=== PATIENT | male | born 1975 ===

== ENCOUNTER → 2016-06-24 | Outpatient (CLI) | payer BC ==
[~2016-06-24] MED LIST: MULT-513 PO; ONDA4TAB46 PO
--- NOTE | 2016-06-24 10:25 | DIAGNOSTIC IMAGING REPORT ---
KUB CLINICAL HISTORY: N20.1 Ureteral stone COMPARISON STUDY: 01/14/2014 FINDINGS: There is no pathologic bowel dilatation. No urinary tract calculi are visualized on conventional radiographic imaging. IMPRESSION: Unremarkable supine abdomen. Electronically signed by: Nigel Dobson M.D. 06/24/2016 10:24 AM Dictated Date/Time: 06/24/2016 10:23 AM
== END | disposition home or self-care (01) ==
LOC: C.RAD 09:38
PROVIDERS: ATTEND Urology
DX: N20.1 Calculus of ureter (principal)

== ENCOUNTER → 2016-09-22 | Outpatient (CLI) | payer BC ==
--- NOTE | 2016-09-22 12:19 | DIAGNOSTIC IMAGING REPORT ---
ULTRASOUND LEFT LOWER EXTREMITY NONVASCULAR CLINICAL HISTORY: Left hebert lump. COMPARISON STUDY: No priors. FINDINGS: Real-time, grayscale, and color flow sonography of the soft tissues of the anterolateral left hebert is performed to indicate a site of interest. There is an approximately 10 mm hypoechoic soft tissue nodule identified at the site of interest. This appears contiguous with the underlying musculature, and likely represents fascial herniation of the tibialis anterior muscle. No fluid collection is seen. IMPRESSION: There is a 10 mm hypoechoic soft tissue nodule the site of interest, likely representing tibialis anterior muscle herniation. Consider orthopedic assessment. Electronically signed by: Ryan Ruffin M.D. 09/22/2016 12:17 PM Dictated Date/Time: 09/22/2016 12:10 PM
== END | disposition home or self-care (01) ==
LOC: C.ULTR 11:28
PROVIDERS: ATTEND Nurse Practitioner
DX: R22.32 Localized swelling, mass and lump, left upper limb (principal)

== ENCOUNTER 2016-10-04 10:10 | Emergency (ER) | payer OTHER, BC ==
[~2016-10-04] VITALS: Ht 188 cm; Wt 91.9 kg
[2016-10-04 10:15] VITALS: TEMP 36.6; Ht 188 cm; Wt 91.9 kg
--- NOTE | 2016-10-04 10:33 | EMERGENCY ROOM VISIT NOTE ---
History First contact with patient: 10:18 Chief Complaint: FALL Stated Complaint: HEAD INJURY,FALL History of Present Illness The patient is a 40 year old male who presents to the Emergency Room with complaints of fall. The patient was sitting outside work waiting for colleagues to arrival. He was sitting on a metal bike rack. He leaned backwards and the entire rack fell backwards. He struck the back of his head on the building behind him. He states that initially he was dazed. He states that he has had a mild headache and trouble focusing. He rates his discomfort a 3/10. He states he has had some burning in his neck. He denies any loss of consciousness, nausea or vomiting. He reports some pain and swelling in the left elbow. He denies any other injury. Review of Systems A 10 system review of systems was completed with positives and pertinent negatives listed in the HPI. Past Medical/Surgical History Medical Problems: (1) Hemorrhoidectomy (2) Rectal polyp removal Social History Smoking Status: Never Smoker Alcohol Use: occasionally Marital Status: single Occupation Status: employed Current/Historical Medications Scheduled Multivitamins/Minerals (Mvi With Minerals), 1 TAB PO DAILY Allergies Coded Allergies: No Known Allergies (Unverified , NONE, 10/04/16) Physical Exam Vital Signs Date Time Temp Pulse Resp B/P (MAP) Pulse Ox O2 Delivery O2 Flow Rate FiO2 10/04/16 14:07 54 16 116/84 99 10/04/16 12:11 54 16 118/64 100 10/04/16 10:15 36.6 69 18 147/107 99 Room Air Physical Exam VITALS: Vitals are noted on the nurse's note and reviewed by myself. Vital signs stable. GENERAL: This is a 40-year-old male, in no acute distress, nondiaphoretic, well- developed well-nourished. SKIN: The skin was without rashes, erythema, edema, or bruising. There is no tenting of the skin. Capillary reflex less than 2 seconds. HEAD: Normocephalic atraumatic. EARS: External auditory canals clear, tympanic membranes pearly canseco without erythema or effusion bilaterally. There is no hemotympanum. EYES: Pupils equal round and reactive to light and accommodation. Conjunctivae without injection, sclerae without icterus. Extraocular movements intact. NOSE: Patent, turbinates without inflammation or discharge. No sinus tenderness. MOUTH: Mucous membranes moist. Tonsils are not enlarged. Pharynx without erythema or exudate. Uvula midline. Airway patent. Tongue does not deviate. NECK: Supple without nuchal rigidity. No lymphadenopathy. No thyromegaly. Cervical spine is mildly tender. No JVD. Range of motion is intact in the neck. HEART: Regular rate and rhythm without murmurs gallops or rubs. LUNGS: Clear to auscultation bilaterally without wheezes, rales or rhonchi. No retractions or accessory muscle use. MUSCULOSKELETAL: There is a very superficial, nonbleeding abrasion to the left elbow. There is some edema noted to the elbow which has the appearance of bursitis. Full range of motion in the upper and lower extremities bilaterally. NEURO: Patient was alert and oriented to person place and time. No focal neurological deficits. Medical Decision & Procedures ER Provider Diagnostic Interpretation: CT OF THE CERVICAL SPINE WITHOUT CONTRAST CLINICAL HISTORY: Neck pain following trauma. COMPARISON STUDY: No previous studies for comparison. TECHNIQUE: Helical axial images of the cervical spine were obtained without IV contrast. Sagittal and coronal reconstructions were viewed. FINDINGS: Alignment of the cervical spine is anatomic. Vertebral body heights are maintained. There is no acute cervical spine fracture. There is mild multilevel endplate osteophytosis. IMPRESSION: No acute cervical spine fracture or subluxation. LEFT ELBOW MIN 3 VIEWS ROUTINE HISTORY:40 yearsMalefall, left elbow pain COMPARISON: None available. TECHNIQUE: 3 views of the left elbow. FINDINGS: Radial head is intact. No acute fracture or dislocation identified within the elbow. No significant degenerative changes. No large elbow joint effusion. Negative for radiopaque foreign body. Mild soft tissue swelling is noted medially. IMPRESSION: Mild soft tissue swelling of the medial elbow without acute fracture, dislocation or significant degenerative change. CT OF THE HEAD WITHOUT CONTRAST CLINICAL HISTORY: Head pain following fall. COMPARISON STUDY: No previous studies for comparison. CT DOSE: 729.78 mGycm TECHNIQUE: Helical axial images of the head were obtained without IV contrast. Automated exposure control was utilized for the study. FINDINGS: No acute intracranial hemorrhage, midline shift or mass effect is present. Ventricular system is normal. Basilar cisterns are patent. There are no extra-axial collections. Canseco-white differentiation is maintained. There is a mucous retention cyst within the right maxillary sinus. There is moderate mucosal thickening of the ethmoid and frontal sinuses. There is no calvarial fracture. IMPRESSION: 1. No acute intracranial findings. 2. No calvarial fracture. ED Course Patient was seen and examined. Previous visits were reviewed. The patient underwent the above imaging. There is no evidence for intracranial bleeding, skull fracture, cervical spine fracture. The patient was sitting on it by crack and fell backwards, striking his head on the building behind him. He likely had first hyperextension and hyperflexion of his neck. He states that initially he had very significant numbness and tingling in the arms and he had difficulty controlling the movements of his arms. He states that lasted for a very short time but he did have some numbness and tingling in the emergency department. Overall, the paresthesias seemed to be improving. After further discussion with the patient and with my attending, an MRI of the cervical spine was ordered. The patient went over for MRI and was not able to tolerate due to claustrophobia. When I came back to reevaluate the patient, here and already changed back into history closed and stated that he did not want to have the MRI and wanted to be discharged. I advised him to follow up with concussion clinic I advised him to return immediately with any worsening numbness, tingling, weakness of the upper extremities or worsening neck pain. The case was discussed with Dr. Reese who agrees with the assessment and treatment plan Medical Decision The differential diagnosis includes: head or neck trauma, cerebrovascular disorders, intracranial lesions, infection,transient ischemic attack (TIA), CVA , seizure, syncope, intracranial mass, intracranial bleeding and vestibular disorders, Cervical strain, cervical spondylosis, cervical discogenic pain, thoracic outlet syndrome, cervical radiculopathy, herpes zoster, cervical disc herniation, bulging, meningitis, among others. Impression Primary Impression: CHI (closed head injury) Additional Impressions: Concussion Cervical strain Departure Information Dispostion Home / Self-Care Condition CONVENIENCE OF [employer]IDENTIAL [employer] Referrals No Doctor, Assigned (PCP) Patient Instructions Concussion, ED Sprain Strain Neck, My [facility] Additional Instructions Contact the concussion clinic at [facility] ([phone]) to schedule a follow-up appointment for further evaluation and management. Their office is located at [address] [place] [address]. [address] Return with any worsening numbness, tingling, weakness of the arms Motrin 600mg every 6-8 hours for moderate pain Otherwise, recheck with your family doctor next week Problem Qualifiers Primary Impression: CHI (closed head injury) Encounter type: initial encounter Qualified Codes: S09.90XA - Unspecified injury of head, initial encounter Additional Impressions: Concussion Encounter type: initial encounter Loss of consciousness presence/duration: without LOC Qualified Codes: S06.0X0A - Concussion without loss of consciousness, initial encounter Cervical strain Encounter type: initial encounter Qualified Codes: S16.1XXA - Strain of muscle, fascia and tendon at neck level, initial encounter
--- NOTE | 2016-10-04 10:54 | DIAGNOSTIC IMAGING REPORT ---
LEFT ELBOW MIN 3 VIEWS ROUTINE HISTORY:40 yearsMalefall, left elbow pain COMPARISON: None available. TECHNIQUE: 3 views of the left elbow. FINDINGS: Radial head is intact. No acute fracture or dislocation identified within the elbow. No significant degenerative changes. No large elbow joint effusion. Negative for radiopaque foreign body. Mild soft tissue swelling is noted medially. IMPRESSION: Mild soft tissue swelling of the medial elbow without acute fracture, dislocation or significant degenerative change. The above report was generated using voice recognition software. It may contain grammatical, syntax or spelling errors. Electronically signed by: Cristino Jim 10/04/2016 10:53 AM Dictated Date/Time: 10/04/2016 10:51 AM
--- NOTE | 2016-10-04 11:15 | DIAGNOSTIC IMAGING REPORT ---
CT OF THE HEAD WITHOUT CONTRAST CLINICAL HISTORY: Head pain following fall. COMPARISON STUDY: No previous studies for comparison. CT DOSE: 729.78 mGycm TECHNIQUE: Helical axial images of the head were obtained without IV contrast. Automated exposure control was utilized for the study. FINDINGS: No acute intracranial hemorrhage, midline shift or mass effect is present. Ventricular system is normal. Basilar cisterns are patent. There are no extra-axial collections. Canseco-white differentiation is maintained. There is a mucous retention cyst within the right maxillary sinus. There is moderate mucosal thickening of the ethmoid and frontal sinuses. There is no calvarial fracture. IMPRESSION: 1. No acute intracranial findings. 2. No calvarial fracture. Electronically signed by: Sachin Mcclellan M.D. 10/04/2016 11:14 AM Dictated Date/Time: 10/04/2016 11:11 AM
--- NOTE | 2016-10-04 11:19 | DIAGNOSTIC IMAGING REPORT ---
CT OF THE CERVICAL SPINE WITHOUT CONTRAST CLINICAL HISTORY: Neck pain following trauma. COMPARISON STUDY: No previous studies for comparison. TECHNIQUE: Helical axial images of the cervical spine were obtained without IV contrast. Sagittal and coronal reconstructions were viewed. FINDINGS: Alignment of the cervical spine is anatomic. Vertebral body heights are maintained. There is no acute cervical spine fracture. There is mild multilevel endplate osteophytosis. IMPRESSION: No acute cervical spine fracture or subluxation. Electronically signed by: Sachin Mcclellan M.D. 10/04/2016 11:18 AM Dictated Date/Time: 10/04/2016 11:14 AM
[2016-10-04 14:07] VITALS: BP 116/84; PULSE 54; O2SAT 99
== END 2016-10-04 14:23 | disposition home or self-care (01) ==
LOC: C.EDB 10:11 → C.EDC 14:23
DX: S09.90XA Unspecified injury of head, initial encounter (principal); S06.0X0A Concussion without loss of consciousness, initial encounter; S16.1XXA Strain of muscle, fascia and tendon at neck level, initial encounter; W17.89XA Other fall from one level to another, initial encounter; Y99.0 Civilian activity done for income or pay; Z98.890 Other specified postprocedural states; Z87.19 Personal history of other diseases of the digestive system